=== PATIENT | male | born 1955 | race Caucasian/White ===

== ENCOUNTER 2022-11-03 07:32 | Outpatient (OUT) | payer MEDICARE, SELFPAY ==
[2022-11-03 08:06] LABS: Hemoglobin 13.8 g/dL (14.0-18.0)
--- NOTE | 2022-11-03 08:10 | CT_ITS ---
[address] [address] Patient Name: JESS CLARKE MRN: [id number] date: 1955 Sex: M Assigned Patient Location: CT Current Patient Location: CT Accession/Order Number: [id number] Exam Date: 11/03/2022 08:15 Report Date: 11/03/2022 10:19 At the request of: BARRY NOLAN Procedure: CT lung screening low-dose EXAMINATION: CT lung screening low-dose HISTORY: Centrilobular Emphysema J43.2 COMPARISON: CT chest 10/17/2020 TECHNIQUE: Axial, Coronal, and Sagittal images were created without the administration of IV contrast material. Dose reduction techniques were achieved by using automated exposure control and/or adjustment of mA and/or kV according to patient size and/or use of iterative reconstruction technique. FINDINGS: LUNGS: 8 x 7 x 6 mm triangular shaped nodule within medial base of right upper lobe. Stable 5 mm nodules versus pleural plaques abutting the right major fissure at the level of the hilum. Mild emphysematous changes bilaterally. Mild apical pleural scarring. PLEURA: No mass, effusion, or pneumothorax. VASCULATURE: No abnormality. TK: No mass or pathologic adenopathy. MEDIASTINUM: No mass or pathologic adenopathy. CARDIAC: No enlargement, pericardial thickening, or significant calcification. AORTA: No aneurysm or dissection. CHEST WALL: No mass or axillary adenopathy BONES: No bone lesion or fracture. LIMITED ABDOMEN: Small nonobstructing stone within left kidney. Limited images of the upper abdomen. OTHER: Negative. IMPRESSION: 1. Lung-RADS 2- Benign Appearance or Behavior. Nodules with a very low likelihood of becoming a clinically active cancer due to size or lack of growth. Follow-up CT Chest in 1 year. 2. Minimal increase in size of a triangular-shaped nodule versus scarring within base of right upper lobe over past 2 years. Follow-up CT chest without contrast in one year is recommended to document stability. Stable appearance of a few additional tiny nodules. 3. Mild emphysematous changes. 4. Nonobstructing left nephrolithiasis. Electronically authenticated by: DARREL ORTIZ Date: 11/03/2022 10:19
--- NOTE | 2022-11-03 09:56 | RT_ITS ---
[facility] Test Date: 2022-11-03 Pat Name: JESS CLARKE Department: Room: - Gender: Male Game Agent: Grabiel Neal RRT : 1955 Requested By: Terrell Price Order Number: [id number] Reading MD: Terrell Price Interpretive Statements Pulmonary function testing was completed according to ATS criteria. Findings were considered accurate and reproducible. Both pre- and post-bronchodilator values utilized for spirometry. No prior studies available for comparison. Spirometry (based on pre-bronchodilator values): -FEV1/FVC: Reduced @ 43% -FEV1: Moderately reduced @ 63% -FVC: Normal @ 108% -ELM54-94%: Reduced @ 24% -There is no significant bronchodilator response. Lung volumes by plethysmography (based on pre-bronchodilator values): -RV: High normal @ 116% -TLC: Normal @ 112% Diffusion capacity: -DLCO: Moderate reduction @ 59% when corrected for Hb 13.8g/dL Flow-volume loop: -Moderate obstructive pattern Impressions: -Moderate obstruction on spirometry without a bronchodilator response. Normal lung volumes. Moderate diffusion impairment. Overall study compatible with moderate emphysema/COPD. Clinical correlation required. Electronically Signed On 11-03-2022 17:43:57 EDT by Terrell Price
[2022-11-03] MEDS: ALBUTEROL SULFATE 2.5 MG/3 ML VIAL NEB IH (10:26)
== END 2022-11-03 07:33 | disposition home or self-care (01) ==
PROVIDERS: PCP Student in an Organized Health Care Education/Training Program; Visit Provider Internal Medicine
DX: E88.01 Alpha-1-antitrypsin deficiency (principal); J43.2 Centrilobular emphysema; Z87.891 Personal history of nicotine dependence; R94.2 Abnormal results of pulmonary function studies; R91.8 Other nonspecific abnormal finding of lung field; N20.0 Calculus of kidney
CPT/HCPCS: 36415; 71271; 85018; 94060; 94726; 94729

== ENCOUNTER 2023-11-14 07:56 | Outpatient (OUT) | payer MEDICARE, SELFPAY ==
--- NOTE | 2023-11-14 | CT_ITS ---
[address] [address] Patient Name: JESS CLARKE MRN: [id number] date: 1955 Sex: M Assigned Patient Location: CT Current Patient Location: Accession/Order Number: [id number] Exam Date: 11/14/2023 08:05 Report Date: 11/16/2023 14:20 At the request of: BARRY NOLAN Procedure: CT lung screening low-dose EXAMINATION: CT lung screening low-dose HISTORY: Lung screening COMPARISON: 02/16 TECHNIQUE: Axial, Coronal, and Sagittal images were created without the administration of IV contrast material.Dose reduction techniques were achieved by using automated exposure control and/or adjustment of mA and/or kV according to patient size and/or use of iterative reconstruction technique. FINDINGS: LUNGS: Mild centrilobular emphysema with an upper lobe predominance right greater than left. Subpleural interlobular septal thickening the posterior aspect of the right upper lobe, stable. Scattered subcentimeter pulmonary nodules the largest in the right lower lobe measuring 6.7 x 4.3 mm axial image 76 PLEURA: No mass, effusion, or pneumothorax. VASCULATURE: No abnormality. TK: No mass or pathologic adenopathy. MEDIASTINUM: No mass or pathologic adenopathy. CARDIAC: No enlargement or pericardial effusion. CORONARY ARTERIES: Coronary calcifications are moderate. AORTA: Ectasia of the ascending thoracic aorta measuring 3.9 cm in diameter. Moderate calcific atherosclerosis CHEST WALL: No mass or axillary adenopathy BONES: No bone lesion or fracture. LIMITED ABDOMEN: No suspicious findings. Limited images of the upper abdomen. OTHER: Negative. CT/CT lung screening low-dose IMPRESSION: New 6.7 mm right lower lobe nodule. This likely is below the limits of detectability for PET scan. Follow-up evaluation in 3 months is recommended to evaluate interval change LUNG SCREENING: Lung-RADS Category 4A- Suspicious. Findings for which additional diagnostic testing and/ or tissue sampling is recommended. 3 month LDCT; PET/CT may be used when there is a >= 8 mm solid component. Electronically authenticated by: MARLON NORTON Date: 11/16/2023 14:20
== END 2023-11-14 07:57 | disposition home or self-care (01) ==
LOC: CT 07:56
PROVIDERS: PCP Student in an Organized Health Care Education/Training Program; Visit Provider Internal Medicine
DX: R91.1 Solitary pulmonary nodule (principal); Z87.891 Personal history of nicotine dependence; Z12.2 Encounter for screening for malignant neoplasm of respiratory organs
CPT/HCPCS: 71271

== ENCOUNTER 2023-12-04 12:39 | Outpatient (OUT) | payer MEDICARE, SELFPAY ==
--- OUTSIDE RECORDS SUMMARY | 2023-12-04 12:46 | XMS_ITS | CCD ---
Author Organization [facility] Care Team Providers Care Cloth Covered Helmet Puller Name Role Phone JOHANNA JOHNSTON Unavailable Unavailable NHUNG CASTILLO Unavailable Unavailable Dee Dee Jones Primary Care Physician [phone] LISA HDEZ Attending Neida Jackman Primary Care Physician Lisa HDEZ Admitting Lisa Ontiveros Attending Lisa Ontiveros Referring Unavailab le REFERRAL, SELF Attending Unavailable Neida Macdonald Consulting Neida Orosco Consulting Unavailable Allergies Allergy Classification Reported Allergen(s) Allergy Type Date of Onset Reaction(s) Facility (1 source) No Known Medication Allergies; Translations: [No Known Medication Allergies] Propensity to adverse reactions (disorder) [facility] Repository Medications Current Medications Medication Drug Class(es) Dates Sig (Normalized) Sig (Original) albuterol 0.833 mg/ml / ipratropium bromide 0.167 mg/ml inhalation solution (2 sources) Anticholinergic, beta2-Adrenergic Agonist Start: 08-28-2020 albuterol-ipratrop ium Inh Manda 3 mL UD 3 mL, Inhalation, [id number], 180 mL, Refill(s) 3, [facility] #[facility], 170, cm, 08/27/20 6:03:00 EDT, Height/Length Dosing, 61.8, kg, 08/27/20 6:03:00 EDT, Weight Dosing Start Date: 08/28/20 Status: Ordered aspirin 81 mg delayed release oral tablet (2 sources) Platelet Aggregation Inhibitor, Nonsteroidal Anti-inflammatory Drug Start: 03-23-2020 take 1 tablet by mouth once daily aspirin 81 mg Oral EC Tab 81 mg = 1 tab(s), Oral, Daily, # 30 tab(s), Refills(s) 0 Start Date: 03/23/20 Status: Ordered atorvastatin 40 mg oral tablet (2 sources) HMG-CoA Reductase Inhibitor Start: 07-30-2020 take 1 tablet by mouth once daily in the evening atorvastatin 40 mg Tab 40 mg = 1 tab(s), Oral, qPM, # 90 tab(s), Refills(s) 3, Pharmacy: [facility]/pharmacy #[id number], 177.7, cm, 03/23/20 8:45:00 EST, Height/Length Dosing, 64.7, kg, 03/23/20 8:45:00 EST, Weight Dosing Start Date: 07/30/20 Status: Ordered Completed/Discontinued Medications Medication Drug Class(es) Dates Sig (Normalized) Sig (Original) predniSONE 10 mg oral tablet (2 sources) Start: 09-26-2020 predniSONE 10 mg Tab 10 mg = 1 tab(s), Oral, As Directed, Take 4 tabs for 3 days, 3 tabs for 3 days, 2 tabs for 3 days, 1 tab for 3 days., # 30 tab(s), Refills(s) 0, Pharmacy: [facility] #[id number], 169, cm, 09/24/20 9:41:00 EDT, Height/Length Dosing, 62, kg, 09/24/20 9:41:00 EDT, Weight Dosing Start Date: 09/26/20 Status: Ordered Problems Problem Classification Problem Date Documented Date Episodic/Chronic Chronic obstructive pulmonary disease and bronchiectasis (4 sources) Acute exacerbation of chronic obstructive airways disease; Translations: [Centriacinar emphysema] 09-06-2020 Chronic Disorders of lipid metabolism (4 sources) Hypercholesterolemia ; Translations: [Hyperlipidemia] 04-14-2020 Chronic E Codes: Fall (1 source) Fall; Translations: [Unspecified fall, initial encounter] Onset: 02-13-2022 Episodic Fracture of upper limb (1 source) Closed fracture radial styloid; Translations: [Displaced fracture of unspecified radial styloid process, initial encounter for closed fracture] Onset: 02-13-2022 Episodic Nonspecific chest pain (1 source) Chest pain, unspecified; Translations: [Chest pain, unspecified] Onset: 09-28-2017 Episodic Open wounds of extremities (1 source) Laceration of hip without foreign body; Translations: [Laceration without foreign body, unspecified hip, initial encounter] Onset: 02-13-2022 Episodic Other lower respiratory disease (2 sources) Hypoxemia 09-06-2020 Episodic Other lower respiratory disease (2 sources) Multiple nodules of lung 10-19-2020 Episodic Residual codes; unclassified (2 sources) Harmful pattern of use of nicotine 08-27-2020 Episodic Screening and history of mental health and substance abuse codes (2 sources) Tobacco use and exposure - finding 09-05-2017 Chronic Substance-related disorders (4 sources) Smoker; Translations: [Tobacco dependence caused by cigarettes] Resolved: 08-30-2016 09-05-2017 Chronic Comment on above: Added secondary to d ocumentation in Social History. Unclassified (2 sources) Chest pain, unspecified / R07.9(ICD-9) Onset: 09-28-2017 Results Test Name Value Interpretation Reference Range Facility US PVR Lower EXT Complete Bi laton 07-09-2023 US PVR Lower EXT Complete Bilat Exam Date/Time: 07/08/2023 08:12 EDT Reason for Exam: I87.2 R09.89 Report IMPRESSION: NO EVIDENCE OF SIGNIFICANT ARTERIAL STENOTIC DISEASE INVOLVING THE RIGHT AND LEFT LEGS. CLINICAL HISTORY: I87.2 R09.89. COMPARISON: None available. FINDINGS: On the right, the brachial systolic pressure is 122 , the high thigh pressure is 148 , the low thigh pressure is 149 , the calf pressure is 145 , the posterior tibial ankle pressure is 151 , the dorsalis pedis ankle pressure is 150 , and the digit pressure is 131 . The high thigh-brachial index is 1.06. The ankle-brachial index at the posterior tibial artery is 1.08 The dorsalis pedis-brachial index is 1.07. The toe-brachial index is 0.94, with normal 0.7 or greater. The plethysmography waveforms are normal. On the left, the brachial systolic pressure is 140 , the high thigh pressure is 155 , the low thigh pressure is 160 , the calf pressure is 143 , the posterior tibial ankle pressure is 168 , the dorsalis pedis ankle pressure is 154 , and the digit pressure is 117 . The high thigh-brachial index is 1.11. The ankle-brachial index at the posterior tibial artery is 1.20 The dorsalis pedis to brachial index is 1.10 The toe-brachial index is 0.84, with normal 0.7 or greater. The plethysmography waveforms are normal. Report Ordering Provider: Lisa HDEZ FINAL REPORT Dictated: 07/09/2023 12:22 pm Sunny Vasquez MD Signed (Electronic Signature): 07/09/2023 12:22 pm Signed by: Sunny Vasquez MD Transcribed by: JADYN Technologist: AD Normal [facility] Consent for Treatmenton 06-25 Consent for Treatment [id number] 0TIFF Normal [facility] Physician Orderon 07-01-2023 Physician Order [id number] 0TIFF Normal [facility] Kristi 02-14-2023 ALT No additional P-5'-P [Catalytic activity/Vol] 28 Int._Unit/L Normal 6-46 [facility] Comment on above: Performed By: #### 1 [id number], 8815976, 5921422, 0170124, 6370279, 4063735, 40533695 #### [facility] [address] [place] [address] Ginna 02-14-2023 AST [Catalytic activity/Vol] 27 Int._Unit/L Normal 5-43 [facility] Comment on above: Performed By: #### 1 0740260, 4604255, 5883630, 3337746, 3747179, 3696361, 10862220 #### [facility] [address] [place] [address] BMPon 02-14-2023 Creatinine [Mass/Vol] 1.0 mg/dL Normal 0.5-1.3 [facility] Comment on above: Performed By: #### 1 9405254, 5936163, 8185675, 6295375, 5248872, 0402798, 92228258 #### [facility] [address] [place] [address] Urea nitrogen [Mass/Vol] 17 mg/dL Normal - [facility] Comment on above: Performed By: #### 1 8492551, 1352610, 0924124, 9891187, 4928538, 6822388, 91372190 #### [facility] [address] [place] [address] Urea nitrogen/Creatini ne [Mass ratio] 17 No Units Normal 10-20 [facility] Comment on above: Performed By: #### 1 8365655, 2043526, 0877217, 5951175, 3821082, 3358577, 92133225 #### [facility] [address] [place] [address] Anion gap [Moles/Vol] 13 mmol/L Normal 6-16 [facility] Comment on above: Performed By: #### 1 0123679, 7644840, 3935011, 7086907, 0808131, 9458240, 20598817 #### [facility] [address] [place] [address] Calcium [Mass/Vol] 9.4 mg/dL Normal 8.9-11.1 [facility] Comment on above: Performed By: #### 1 5630125, 3510975, 4965730, 6634939, 9058381, 6448189, 68364465 #### [facility] [address] [place] [address] Chloride [Moles/Vol] 104 mmol/L Normal 101-111 [facility] Comment on above: Performed By: #### 1 1872413, 9931830, 6239146, 6925444, 5008309, 1861840, 71550368 #### [facility] [address] [place] [address] CO2 [Moles/Vol] 24 mmol/L Normal 21-31 [facility] Comment on above: Performed By: #### 1 1214477, 1355821, 2824685, 4077403, 5753074, 2181479, 23896972 #### [facility] [address] [place] [address] Glucose [Mass/Vol] 107 mg/dL Normal 55-199 [facility] Comment on above: Result Comment: If t his glucose result represents a fasting glucose, interpretation should refer to the following reference range: 55-99 mg/dL Performed By: #### 1 8181007, 8802356, 3803021, 1765221, 2088063, 2670622, 13190073 #### [facility] [address] [place] [address] Potassium [Moles/Vol] 4.1 mmol/L Normal 3.5-5.3 [facility] Comment on above: Performed By: #### 1 2788750, 3666178, 8596162, 2344935, 3599974, 0452883, 67211932 #### [facility] [address] [place] [address] Sodium [Moles/Vol] 137 mmol/L Normal 135-145 [facility] Comment on above: Performed By: #### 1 4571367, 5128766, 0197633, 4076202, 1367437, 4497441, 83764212 #### [facility] [address] [place] [address] CBC w/Indiceson 02-14-2023 Erythrocyte distribution width (RBC) [Ratio] 12.5 % Normal 10.9-14.2 [facility] Comment on above: Performed By: #### 1 2012838, 2655252, 4853344, 5480196, 5632525, 8537985, 09625962 #### [facility] [address] [place] [address] Hematocrit (Bld) [Volume fraction] 46.1 % Normal 37.7-49.0 [facility] Comment on above: Performed By: #### 1 7925394, 0918584, 1087225, 9957484, 3884771, 7795696, 22575582 #### [facility] [address] [place] [address] Hemoglobin (Bld) [Mass/Vol] 15.5 g/dL Normal 13.5-17.5 [facility] Comment on above: Performed By: #### 1 1070100, 4127103, 5137471, 1860719, 0938343, 7313060, 99300479 #### [facility] [address] [place] [address] MCH (RBC) [Entitic mass] 31.1 pg Normal 27.0-34.0 [facility] Comment on above: Performed By: #### 1 5838848, 9226699, 9518776, 1974470, 1004109, 7767870, 73244157 #### [facility] [address] [place] [address] MCHC (RBC) [Mass/Vol] 33.5 g/dL Normal 31.4-36.0 [facility] Comment on above: Performed By: #### 1 0117331, 2768970, 9920023, 4145874, 3663593, 6554131, 28694159 #### [facility] [address] [place], [place] [address] MCV (RBC) [Entitic vol] 92.7 fL Normal 80.0-100.0 [facility] Comment on above: Performed By: #### 1 5889797, 3808772, 3207273, 5043337, 4330701, 0668610, 33772465 #### [facility] [address] [place] [address] Platelet mean volume (Bld) [Entitic vol] 9.3 fL Normal 6.4-10.8 [facility] Comment on above: Performed By: #### 1 2455250, 2053290, 2175889, 5219594, 6450177, 9683903, 31261609 #### [facility] [address] [place] [address] Platelets (Bld) [#/Vol] 239.0 E9/L Normal 150.0-500.0 [facility] Comment on above: Performed By: #### 1 1544784, 5131942, 3048390, 6640168, 4285484, 0853702, 02456991 #### [facility] [address] [place] [address] RBC (Bld) [#/Vol] 5.0 E12/L Normal 4.3-5.9 [facility] Comment on above: Performed By: #### 1 4769769, 2536824, 0204660, 2507372, 9614257, 1457250, 83744568 #### [facility] [address] [place] [address] WBC corrected for nucl RBC Auto (Bld) [#/Vol] 7.0 E9/L Normal 4.0-11.0 [facility] Comment on above: Performed By: #### 1 9457112, 6998400, 7718748, 7589488, 4239047, 3835301, 23146556 #### [facility] [address] [place] [address] Consenton 02-14-2023 Consent [id number] Normal [facility] Lipid Panelon 02-14-2023 Cholesterol [Mass/Vol] 182 mg/dL Normal 120-200 [facility] Comment on above: Performed By: #### 1 8699255, 2396772, 7658152, 1727568, 9147611, 3708974, 39364463 #### [facility] [address] [place] [address] Cholesterol in HDL [Mass/Vol] 48 mg/dL Invalid Interpretation Code [facility] Comment on above: Result Comment: HDL > or equal to 60 mg/dL: Low cardiovascular risk HDL < 40 mg/dL : High cardiovascular risk Performed By: #### 1 9140888, 5626807, 2576025, 6074504, 3773366, 7252935, 99803160 #### [facility] [address] [place] [address] Cholesterol in LDL [Mass/Vol] 109 mg/dL Normal <=129 [facility] Comment on above: Performed By: #### 1 0037138, 6278629, 4640978, 6296678, 4017580, 8421893, 02584073 #### [facility] [address] [place] [address] Cholesterol in VLDL [Mass/Vol] 28 mg/dL Normal 7-40 [facility] Comment on above: Performed By: #### 1 9122990, 0060281, 1759147, 6679399, 3437142, 0217574, 25794925 #### [facility] [address] [place] [address] Triglyceride [Mass/Vol] 138 mg/dL Normal <=149 [facility] Comment on above: Performed By: #### 1 5535871, 9751431, 8804996, 5287394, 0064887, 0898021, 04237239 #### [facility] [address] [place] [address] PSA Totalon 02-14-2023 Prostate specific Ag [Mass/Vol] 1.2 ng/mL Normal 0.1-3.5 [facility] Comment on above: Result Comment: The concentration of PSA determined by different manufacturers can vary due to differences in assay methods and reagent specificity. Values obtained from different assay methods cannot be used interchangeably. The methodology used for this result was chemiluminescence using [employer] Access [employer] PSA reagent. Performed By: #### 1 6907538, 2817303, 9064891, 0024476, 7408291, 9636856, 74747648 #### [facility] [address] [place] [address] eGFRon 02-14-2023 GFR/1.73 sq M.predicted among non-blacks MDRD (S/P/Bld) [Vol rate/Area] 84 mL/min/1.73 m2 Normal >=59 [facility] Comment on above: Order Comment: Order added by Discern Expert. Result Comment: Intranet Support jose kidney disease could be indicated at eGFR's of less than 60 mL/min/1.73m2. Kidney failure is indicated at less than 15 mL/min/1.73m2. Performed By: #### 1 1544924, 6489889, 4481756, 9241467, 4034513, 3772732, 92650880 #### [facility] [address] [place] [address] In office Testingon 07-11-19 In office Testing [id number]:127 Normal [facility] Vital Signs Date Time Vital Sign Value Performing Clinician Seun burks 02-13-2022 15:30-0400 Diastolic blood pressure 73 mm[Hg] Jamel Randell [facility] 02-13-2022 15:30-0400 Heart rate 69 /min Jamel Randell [facility] 02-13-2022 15:30-0400 Mean blood pressure 92 mm[Hg] Jamel Randell [facility] 02-13-2022 15:30-0400 Respiratory rate 12 /min Jamel Randell [facility] 02-13-2022 15:30-0400 SaO2% (BldA) [Mass fraction] 96 % Jamel Randell [facility] 02-13-2022 15:30-0400 Systolic blood pressure 130 mm[Hg] Jamel Randell [facility] 02-13-2022 14:00-0400 Body temperature 98.06 [degF] Jamel Randell [facility] 02-13-2022 14:00-0400 Diastolic blood pressure 75 mm[Hg] Jamel Randell [facility] 02-13-2022 14:00-0400 Heart rate 71 /min Jamel Randell [facility] 02-13-2022 14:00-0400 Mean blood pressure 89 mm[Hg] Jamel Randell [facility] 02-13-2022 14:00-0400 Respiratory rate 14 /min Jamel Randell [facility] 02-13-2022 14:00-0400 SaO2% (BldA) [Mass fraction] 94 % Jamel Randell [facility] 02-13-2022 14:00-0400 Systolic blood pressure 116 mm[Hg] Jamel Randell [facility] 02-13-2022 13:01-0400 Diastolic blood pressure 73 mm[Hg] Jamel Randell [facility] 02-13-2022 13:01-0400 Heart rate 70 /min Jamel Randell [facility] 02-13-2022 13:01-0400 Respiratory rate 18 /min Jamel Randell [facility] 02-13-2022 13:01-0400 SaO2% (BldA) [Mass fraction] 95 % Jamel Randell [facility] 02-13-2022 13:01-0400 Systolic blood pressure 106 mm[Hg] Jamel Randell [facility] 02-13-2022 12:49-0400 Body temperature 98.24 [degF] Jamel Randell [facility] 02-13-2022 12:49-0400 Heart rate 102 /min Jamel Randell [facility] 02-13-2022 12:49-0400 Respiratory rate 18 /min Jamel Randell [facility] Encounters Encounter Date Encounter Type Care Provider Facility Start: 07-08-2023 End: 07-09-2023 ambulatory Lisa HDEZ Facility[facility] Start: 07-08-2023 End: 07-08-2023 Patient encounter procedure Lisa WOLFR [facility] Start: 07-01-2023 End: 07-01-2023 ambulatory LISA CUEVASKAREN Not Available Start: 02-14-2023 End: 02-15-2023 ambulatory SELF REFERRAL Facility:[facility] Start: 02-13-2022 End: 02-13-2022 Emergency department patient visit Jamel Mejias [facility] Start: 09-28-2017 Ambulatory JOHANNA JOHNSTON [facility] ity:[id number] Start: 09-28-2017 Ambulatory Facility:9 [id number] Immunizations Immunization Date Immunization Notes Care Provider Fa joshua 02-13-2022 tetanus toxoid, redu tasha diphtheria toxoid, and acellular pertussis vaccine, adsorbed Jamel Mejias [facility] Comment on above: Early/Late Reason: E lorna/Late Reason: Accommodate D/C 07-26-2020 SARS-CoV-2 (COVID-19 ) mRNA-1273 vaccine Jamel Mejias [facility] Comment on above: Result Comment: William Coyne 02-24-2020 influenza virus vaccine, unspecified formulation Jamel Mejias [facility] 04-25-2019 influenza, injectabl e, quadrivalent, contains preservative Jamel Mejias [facility] Payers Date Payer Category Payer Medicare [id number] 2023 Unknown [id number] 1955 Unknown [id number] 1955 Unknown [id number] [id number] [id number] 1955 Unknown [id number] Private Health Insurance [id number] Social History Date Type Detail Facility Start: 02-13-2022 Tobacco smoking status Ex-smoker (fi nding) [facility] Comment on above: Pt denies smoking fo r a month Sex Assigned At Male [facility] Functional Status Date Assessment Result Facility 02-13-2022 Functional Status N/A [facility] Discharge instructions 02-13-2022 Note Date & Type Note Facility 02-13-2022 Hospital Discharg e instructions Patient Education 02/13/2022 15:15:04 Cast or Splint Care, Adult Cast or Splint Care, Adult Casts and splints are supports that are worn to protect broken bones and other injuries. A cast or splint may hold a bone still and in the correct position while it heals. Casts and splints may also help ease pain, swelling, and muscle spasms. A cast is a hardened support that is usually made of fiberglass or plaster. It is custom-fit to the body and it offers more protection than a splint. It cannot be taken off and put back on. A splint is a type of soft support that is usually made from cloth and elastic. It can be adjusted or taken off as needed. You may need a cast or a splint if you: Have a broken bone. Have a soft-tissue injury. Need to keep an injured body part from moving (keep it immobile) after surgery. How is this treated? If you have a cast: Do not stick anything inside the cast to scratch your skin. Sticking something in the cast increases your risk of infection. Check the skin around the cast every day. Tell your health care provider about any concerns. You may put lotion on dry skin around the edges of the cast. Do not put lotion on the skin underneath the cast. Keep the cast clean. If the cast is not waterproof: ?Do not let it get wet. ?Cover it with a watertight covering when you take a bath or a shower. If you have a splint: Wear it as told by your health care provider. Remove it only as told by your health care provider. Loosen the splint if your fingers or toes tingle, become numb, or turn cold and blue. Keep the splint clean. If the splint is not waterproof: ?Do not let it get wet. ?Cover it with a watertight covering when you take a bath or a shower. Bathing Do not take baths or swim until your health care provider approves. Ask your health care provider if you can take showers. You may only be allowed to take sponge baths for bathing. If your cast or splint is not waterproof, cover it with a watertight covering when you take a bath or shower. Managing pain, stiffness, and swelling Move your fingers or toes often to avoid stiffness and to lessen swelling. Raise (elevate) the injured area above the level of your heart while sitting or lying down. Safety Do not use the injured limb to support your body weight until your health care provider says that it is okay. Use crutches or other assistive devices as told by your health care provider. General instructions Do not put pressure on any part of the cast or splint until it is fully hardened. This may take several hours. Return to your normal activities as told by your health care provider. Ask your health care provider what activities are safe for you. Take wahb-hve-fhrhkwb and prescription medicines only as told by your health care provider. Keep all follow-up visits as told by your health care provider. This is important. Contact a health care provider if: Your cast or splint gets damaged. The skin around the cast gets red or raw. The skin under the cast is extremely itchy or painful. Your cast or splint feels very uncomfortable. Your cast or splint is too tight or too loose. Your cast becomes wet or it develops a soft spot or area. You get an object stuck under your cast. Get help right away if: Your pain is getting worse. The injured area tingles, becomes numb, or turns cold and blue. The part of your body above or below the cast is swollen and discolored. You cannot feel or move your fingers or toes. There is fluid leaking through the cast. You have severe pain or pressure under the cast. You have trouble breathing. You have shortness of breath. You have chest pain. This information is not intended to replace advice given to you by your health care provider. Make sure you discuss any questions you have with your health care provider. Document Released: 04/10/2001 Document Revised: 02/08/2018 Document Reviewed: 10/04/2016 [employer] Patient Education 2020 [employer]. Follow Up Care 02/13/2022 12:48:03 With:Collin Brock Address: [address] [place], [place] [id number] Business (1) When:02/16/2022 15:14:50 With:Dee Dee Jones Address: [address] [place] [address] [place] [id number] Business (1) When:Within 3 Day(s) [facility] [place] Evaluation + Plan note 10-19-2021 Radiology Note Date & Type Note Facility 10-19-2021 Evaluation + Plan note Future Scheduled TestsCT Chest w/ Contrast 10/19/21 [facility] Hospital course Narrative Note Date & Type Note Facility Hospital course Narrative No data available for this section [facility] Hospital Discharge instructions Note Date & Type Note [facility] Discharge instructions No data available for this section [facility] Progress note Note Date & Type Note Facility Progress note No data available for this section [facility] Summary Purpose Family History No Family History Records FoundNo Family History Records FoundNo Family History Records Found No data available for this section No Family History Records Found Advance Directives No Advanced Directives Records FoundNo Advanced Directives Records FoundNo Advanced Directives Records FoundNo Advanced Directives Records Found Additional Source Comments (unrecognized sect ion and content) No Status Records FoundNo Status Records FoundNo Status Records FoundNo Status Records Found INFORMATION SOURCE (unrecogn ized section and content) DATE CREATED AUTHOR 10/13/2017 [facility] DATE CREATED AUTHOR AUTHOR'S ORGANIZ ATION 10/13/2017 [facility] [place] DATE CREATED AUTHOR AUTHOR'S ORGANIZ ATION 07/02/2023 [facility] DATE CREATED AUTHOR AUTHOR'S ORGANIZ ATION 07/10/2023 [facility] Patient Care team informatio n (unrecognized section and content) Personnel Name: Dee Dee Jones MD Address: Address: [address] [place] [address] Personnel Name: Neida Macdonald MD Address: Address: [address] [place] [address] FOR RECORDS PERTAINING TO PATIENTS WHO ARE OR HAVE BEEN ENROLLED IN A CHEMICAL DEPENDENCY/SUBSTANCEABUSE PROGRAM, SOME INFORMATION MAY BE OMITTED. This clinical summary was aggregated from multiple sources. Caution should be exercised in using it in the provision of clinical care. This summary normalizes information from multiple sources, and as a consequence, information in this document may materially change the coding, format and clinical context of patient data. In addition, data may be omitted in some cases. CLINICAL DECISIONS SHOULD BE BASED ON THE PRIMARY CLINICAL RECORDS. [facility] [employer] [facility]. provides no warranty or guarantee of the accuracy or completeness of information in this document.
[2023-12-04] MEDS: ALBUTEROL SULFATE 2.5 MG/3 ML VIAL NEB IH (13:18)
== END 2023-12-04 12:40 | disposition home or self-care (01) ==
PROVIDERS: PCP Student in an Organized Health Care Education/Training Program; Visit Provider Internal Medicine
DX: J43.2 Centrilobular emphysema (principal)
CPT/HCPCS: 94060; 94726; 94729

== ENCOUNTER 2024-03-12 07:47 | Outpatient (OUT) | payer MEDICARE, SELFPAY ==
--- NOTE | 2024-03-12 | CT_ITS ---
[address] [address] Patient Name: JESS CLARKE MRN: [id number] date: 1955 Sex: M Assigned Patient Location: CT Current Patient Location: Accession/Order Number: [id number] Exam Date: 03/12/2024 07:55 Report Date: 03/13/2024 09:12 At the request of: BARRY NOLAN Procedure: CT chest wo con EXAMINATION: CT chest wo con HISTORY: R818 ; follow-up lung nodules COMPARISON: CT lung screening 11/14/2023, 11/03/2022, 10/17/2020 TECHNIQUE: Axial, Coronal, and Sagittal images were created without the administration of IV contrast material. Dose reduction techniques were achieved by using automated exposure control and/or adjustment of mA and/or kV according to patient size and/or use of iterative reconstruction technique. FINDINGS: LUNGS: 5 x 4 mm slightly spiculated nodule within anterior lateral base of left lower lobe; unchanged. Stable appearance of a few scattered small nodules and focal pleural thickening. Mild emphysematous changes. PLEURA: No mass, effusion, or pneumothorax. VASCULATURE: No abnormality. TK: No mass or pathologic adenopathy. MEDIASTINUM: No mass or pathologic adenopathy. CARDIAC: No enlargement, pericardial thickening, or pericardial effusion. Coronary Artery calcifications: AORTA: No aneurysm or dissection. CHEST WALL: No mass or axillary adenopathy BONES: No bone lesion or fracture. LIMITED ABDOMEN: No suspicious findings. Limited images of the upper abdomen. OTHER: Negative. CT/CT chest wo con IMPRESSION: 1. Lung-RADS 2- Benign Appearance or Behavior. Nodules with a very low likelihood of becoming a clinically active cancer due to size or lack of growth. Follow-up CT Chest in 1 year. 2. Small, 5 mm spiculated nodule within anterior lateral left lower lobe. This is below detectability for PET imaging and is stable on CT studies back through 10/17/2020 which favors benign etiology. Annual screening recommended. Electronically authenticated by: DARREL ORTIZ Date: 03/13/2024 09:12
--- OUTSIDE RECORDS SUMMARY | 2024-03-12 07:51 | XMS_ITS | CCD ---
Author Organization [facility] Care Team Providers Care Marking Room Supervisor Name Role Phone JOHANNA JOHNSTON Unavailable Unavailable NHUNG CASTILLO Unavailable Unavailable Dee Dee Jones Primary Care Physician [phone] LISA HDEZ Attending Unavailab Neida Shukla Primary Care Physician [phone] Hayde MEREDITH Attending Unavailable Yunior JIMENEZ Attending Unavailable Lisa HDEZ Referring Unavailab Lisa Ramirez Attending Lisa Ontiveros Admitting Unavailab Ross Hoffman Attending Unavailable Allergies Allergy Classification Reported Allergen(s) Allergy Type Date of Onset Reaction(s) Facility (1 source) No Known Medication Allergies; Translations: [No Known Medication Allergies] Propensity to adverse reactions (disorder) [facility] Repository Medications Current Medications Medication Drug Class(es) Dates Sig (Normalized) Sig (Original) albuterol 0.833 mg/ml / ipratropium bromide 0.167 mg/ml inhalation solution (2 sources) Anticholinergic, beta2-Adrenergic Agonist Start: 08-28-2020 albuterol-ipratrop ium Inh Manda 3 mL UD 3 mL, Inhalation, [id number], 180 mL, Refill(s) 3, [facility], 170, cm, 08/27/20 6:03:00 EDT, Height/Length [...] qPM, # 90 tab(s), Refills(s) 3, Pharmacy: [facility]/pharmacy #[id number], 177.7, cm, 03/23/20 8:45:00 EST, Height/Length [...] days., # 30 tab(s), Refills(s) 0, Pharmacy: [facility], 169, cm, 09/24/20 9:41:00 EDT, Height/Length [...] Results Test Name Value Interpretation Reference Range Facil ity US PVR Lower EXT Complete Bi laton [...] Sunny Vasquez MD Transcribed by: JADYN Technologist: ZACK [facility] Consent for Treatmenton 06-25 Consent for Treatment [id number] 0TIFF [facility] Physician Orderon 07-01-2023 Physician Order [id number] 0TIFF [facility] Vital Signs Date Time Vital Sign Value Performing Clinician Faci lity 02-13-2022 15:30-0400 Diastolic blood pressure 73 mm[Hg] Jamel Mejias [facility] 02-13-2022 15:30-0400 Heart rate 69 /min Jamel Mejias [facility] 02-13-2022 15:30-0400 Mean blood pressure 92 mm[Hg] Jamel Mejias [facility] 02-13-2022 15:30-0400 Respiratory rate 12 /min Jamel Mejias [facility] 02-13-2022 15:30-0400 SaO2% (BldA) [Mass fraction] 96 % Jamel Mejias [facility] 02-13-2022 15:30-0400 Systolic blood pressure 130 mm[Hg] Jamel Mejias [facility] 02-13-2022 14:00-0400 Body temperature 98.06 [degF] Jamel Mejias [facility] 02-13-2022 14:00-0400 Diastolic blood pressure 75 mm[Hg] Jamel Randell [facility] 02-13-2022 14:00-0400 Heart rate 71 /min Jamel Randell [facility] 02-13-2022 14:00-0400 Mean blood pressure 89 mm[Hg] Jamel Randell [facility] 02-13-2022 14:00-0400 Respiratory rate 14 /min Jamel Randell [facility] 02-13-2022 14:00-0400 SaO2% (BldA) [Mass fraction] 94 % Jamel Randell [facility] 02-13-2022 14:00-0400 Systolic blood pressure 116 mm[Hg] Jamel Randell [facility] 02-13-2022 13:01-0400 Diastolic blood pressure 73 mm[Hg] Jamel Randell [facility] 02-13-2022 13:01-0400 Heart rate 70 /min Jamel Randell [facility] 02-13-2022 13:01-0400 Respiratory rate 18 /min Jamel Randell [facility] 02-13-2022 13:01-0400 SaO2% (BldA) [Mass fraction] 95 % Jamel Randell [facility] 02-13-2022 13:01-0400 Systolic blood pressure 106 mm[Hg] Jamel Randell [facility] 02-13-2022 12:49-0400 Body temperature 98.24 [degF] Jamel Randell [facility] 02-13-2022 12:49-0400 Heart rate 102 /min Jamel Randell [facility] 02-13-2022 12:49-0400 Respiratory rate 18 /min Jamel Randell [facility] Encounters Encounter Date Encounter Type Care Provider Facility Start: 02-25-2024 End: 02-25-2024 ambulatory Ross Osborne [facility] Start: 02-11-2024 End: 02-11-2024 ambulatory Hayde MEREDITH [facility] Start: 01-18-2024 End: 01-18-2024 ambulatory Yunior JIMENEZ [facility] Start: 07-08-2023 End: 07-08-2023 ambulatory Lisa A DONNAMILLER Facility[facility] Start: 07-08-2023 End: 07-08-2023 Patient encounter procedure Lisa A CIPRIANONAMILLER [facility] Start: 07-01-2023 End: 07-01-2023 ambulatory LISA COTANAMILLER Not Available Start: 02-13-2022 End: 02-13-2022 Emergency department patient visit Jamel Mejias [facility] Start: 09-28-[address] [facility] ity:[id number] Start: 09-28-2017 Ambulatory Facility:[id number] Immunizations Immunization Date Immunization Notes Care Provider Fa elzbieta 02-13-2022 tetanus toxoid, redu tasha diphtheria toxoid, and acellular pertussis vaccine, adsorbed Jamel Mejias [facility] Comment on above: Early/Late Reason: E lorna/Late Reason: Accommodate D/C 07-26-2020 SARS-CoV-2 (COVID-19 ) mRNA-1273 vaccine Jamel Mejias [facility] Comment on above: Result Comment: William Coyne 02-24-2020 influenza virus vaccine, unspecified formulation Jamel Mejias [facility] 04-25-2019 influenza, injectabl e, quadrivalent, contains preservative Jamel Mejias [facility] Payers Date Payer Category Payer Medicare [id number] 1955 Unknown [id number] 1955 Unknown [id number] 1955 Unknown [id number] Private Health Insurance [id number] Social History Date Type Detail Facility Start: 02-13-2022 Tobacco smoking status Ex-smoker (fi nding) [facility] Comment on above: Pt denies smoking fo r a month Sex Assigned At Male [facility] Functional Status Date Assessment Result Facility 02-13-2022 Functional Status N/A [facility] Discharge instructions 02-13-2022 Note Date & [...] what activities are safe for you. Take eabs-xsa-jyabzaa and prescription medicines only as told by [...] 04/10/2001 Document Revised: 02/08/2018 Document Reviewed: 10/04/2016 [employer] Patient Education 2020 [employer]. Follow Up Care 02/13/2022 12:48:03 With:Collin Brock Address: [address] [place] [phone] Business (1) When:02/16/2022 15:14:50 With:Dee Dee Jones Address: [address] [place] [phone] Business (1) When:Within 3 Day(s) [facility] Evaluation + Plan note 10-19-2021 Radiology Note Date & Type Note Facility 10-19-2021 Evaluation + Plan note Future Scheduled TestsCT Chest w/ Contrast 10/19/21 [facility] Hospital course Narrative Note Date & Type Note Facility Hospital course Narrative No data available for this section [facility] Hospital Discharge instructions Note Date & Type Note Facility Hospital Discharge instructions No data available for this section [facility] Progress note Note Date & Type Note Facility Progress note No data available for this section [facility] Summary Purpose Family History No Family History [...] section and content) DATE CREATED AUTHOR 10/13/2017 [facility] DATE CREATED AUTHOR AUTHOR'S ORGANIZ ATION 10/13/2017 [facility] DATE CREATED AUTHOR AUTHOR'S ORGANIZ ATION 07/02/2023 [facility] EPIC DATE CREATED AUTHOR AUTHOR'S ORGANIZ ATION 02/27/[address] [facility] Patient Care team informatio n (unrecognized section and content) Personnel Name: Dee Dee Jones MD Address: Address: [address] Personnel Name: Neida Macdonald MD Address: Address: [address] FOR RECORDS PERTAINING TO PATIENTS WHO [...] BE BASED ON THE PRIMARY CLINICAL RECORDS. [facility] [employer] provides no warranty or guarantee of the accuracy or completeness of information in this document.
== END 2024-03-12 07:48 | disposition home or self-care (01) ==
LOC: CT 07:49
PROVIDERS: PCP Student in an Organized Health Care Education/Training Program; Visit Provider Internal Medicine
DX: R91.8 Other nonspecific abnormal finding of lung field (principal)
CPT/HCPCS: 71250

== ENCOUNTER 2024-07-25 07:31 | Outpatient (RCR) | payer MEDICARE, SELFPAY ==
[2024-07-11 07:59] VITALS: BP 153/74; PULSE 86; TEMP 36.6; O2SAT 92
--- NOTE | 2024-07-11 08:18 | PC.NURSE ---
patient and educated on Alpha 1 and prolastin therapy. handout given for both.
[2024-07-18 07:35] VITALS: BP 146/80; PULSE 80; TEMP 36.8; O2SAT 92
--- NOTE | 2024-07-18 08:00 | PC.NURSE ---
0756: IV Prolastin initiated at this time.Denies needs.
[2024-07-25 07:37] VITALS: BP 122/79; PULSE 67; TEMP 36.4; O2SAT 92
== END 2024-07-25 23:59 | disposition home or self-care (01) ==
LOC: INF 07:31
PROVIDERS: PCP Student in an Organized Health Care Education/Training Program; Visit Provider Internal Medicine
DX: E88.01 Alpha-1-antitrypsin deficiency (principal); J43.9 Emphysema, unspecified
CPT/HCPCS: 96365; J0256

== ENCOUNTER 2024-08-22 07:35 | Outpatient (RCR) | payer MEDICARE, SELFPAY ==
[2024-08-01 07:46] VITALS: BP 136/78; PULSE 74; TEMP 36.6; O2SAT 90
[2024-08-01] MEDS: ALPHA IV (08:17)
[2024-08-01] MEDS: PROTEINASE INHIBITOR IV (08:17)
[2024-08-08 07:48] VITALS: BP 137/76; PULSE 67; TEMP 36.4; O2SAT 90
[2024-08-08] MEDS: PROTEINASE INHIBITOR IV (07:56)
[2024-08-08] MEDS: ALPHA IV (07:56)
[2024-08-15 07:56] VITALS: BP 147/69; PULSE 74; TEMP 36.2; O2SAT 90
[2024-08-15] MEDS: PROTEINASE INHIBITOR IV (08:03)
[2024-08-15] MEDS: ALPHA IV (08:03)
[2024-08-22 07:32] VITALS: BP 138/77; PULSE 85; TEMP 36.1; O2SAT 91
[2024-08-22] MEDS: ALPHA IV (07:41)
[2024-08-22] MEDS: PROTEINASE INHIBITOR IV (07:41)
== END 2024-08-22 12:49 | disposition home or self-care (01) ==
LOC: INF 07:35
PROVIDERS: PCP Student in an Organized Health Care Education/Training Program; Visit Provider Internal Medicine
DX: E88.01 Alpha-1-antitrypsin deficiency (principal); J43.2 Centrilobular emphysema
CPT/HCPCS: 96365; J0256

== ENCOUNTER 2024-09-20 07:31 | Outpatient (RCR) | payer MEDICARE, SELFPAY ==
[2024-08-29 07:40] VITALS: BP 138/83; PULSE 78; TEMP 36.9; O2SAT 90
[2024-08-29] MEDS: ALPHA IV (08:00)
[2024-08-29] MEDS: PROTEINASE INHIBITOR IV (08:00)
[2024-09-05 07:45] VITALS: BP 123/69; PULSE 82; TEMP 35.9; O2SAT 90
[2024-09-05] MEDS: ALPHA IV (08:03)
[2024-09-05] MEDS: PROTEINASE INHIBITOR IV (08:03)
[2024-09-12 07:32] VITALS: BP 130/70; PULSE 78; TEMP 36.2; O2SAT 92
[2024-09-12] MEDS: ALPHA IV (07:49)
[2024-09-12] MEDS: PROTEINASE INHIBITOR IV (07:49)
[2024-09-20 07:35] VITALS: BP 138/71; PULSE 66; TEMP 36.7; O2SAT 91
[2024-09-20] MEDS: ALPHA IV (07:50)
[2024-09-20] MEDS: PROTEINASE INHIBITOR IV (07:50)
== END 2024-09-20 14:21 | disposition home or self-care (01) ==
LOC: INF 07:31
PROVIDERS: PCP Student in an Organized Health Care Education/Training Program; Visit Provider Internal Medicine
DX: E88.01 Alpha-1-antitrypsin deficiency (principal); J43.9 Emphysema, unspecified
CPT/HCPCS: 96365; J0256

== ENCOUNTER 2024-10-24 07:34 | Outpatient (RCR) | payer MEDICARE, SELFPAY ==
[2024-09-26 07:42] VITALS: BP 146/87; PULSE 70; TEMP 36.6; O2SAT 94
[2024-09-26] MEDS: PROTEINASE INHIBITOR IV (07:57)
[2024-09-26] MEDS: ALPHA IV (07:57)
[2024-10-03 07:40] VITALS: BP 142/81; PULSE 75; TEMP 36.8; O2SAT 91
[2024-10-03] MEDS: PROTEINASE INHIBITOR IV (08:18)
[2024-10-03] MEDS: ALPHA IV (08:18)
[2024-10-10 07:43] VITALS: BP 124/77; PULSE 72; TEMP 36.2; O2SAT 92
[2024-10-10] MEDS: PROTEINASE INHIBITOR IV (08:01)
[2024-10-10] MEDS: ALPHA IV (08:01)
[2024-10-17 07:25] VITALS: BP 131/77; PULSE 93; TEMP 36.2; O2SAT 98
[2024-10-17] MEDS: PROTEINASE INHIBITOR IV (07:48)
[2024-10-17] MEDS: ALPHA IV (07:48)
--- NOTE | 2024-10-17 07:54 | PC.NURSE ---
0748: IV Prolastin initiated at this time.
[2024-10-24 07:43] VITALS: BP 119/71; PULSE 81; TEMP 36.6; O2SAT 95
[2024-10-24] MEDS: PROTEINASE INHIBITOR IV (07:47)
[2024-10-24] MEDS: ALPHA IV (07:47)
== END 2024-10-24 23:59 | disposition home or self-care (01) ==
LOC: INF 07:34
PROVIDERS: PCP Student in an Organized Health Care Education/Training Program; Visit Provider Internal Medicine
DX: E88.01 Alpha-1-antitrypsin deficiency (principal); J43.9 Emphysema, unspecified
CPT/HCPCS: 96365; J0256

== ENCOUNTER 2024-11-22 07:07 | Outpatient (RCR) | payer MEDICARE, SELFPAY ==
[2024-10-31 07:37] VITALS: BP 125/69; PULSE 81; TEMP 36.6; O2SAT 93
[2024-10-31] MEDS: ALPHA IV (07:54)
[2024-10-31] MEDS: PROTEINASE INHIBITOR IV (07:54)
[2024-11-07 07:30] VITALS: BP 117/74; PULSE 80; TEMP 36.6; O2SAT 92
[2024-11-07] MEDS: PROTEINASE INHIBITOR IV (07:57)
[2024-11-07] MEDS: ALPHA IV (07:57)
[2024-11-14 07:44] VITALS: BP 126/76; PULSE 78; TEMP 36.4; O2SAT 92
[2024-11-14] MEDS: ALPHA IV (08:03)
[2024-11-14] MEDS: PROTEINASE INHIBITOR IV (08:03)
[2024-11-22 07:25] VITALS: BP 149/79; PULSE 67; TEMP 36.6; O2SAT 93
[2024-11-22] MEDS: ALPHA IV (07:51)
[2024-11-22] MEDS: PROTEINASE INHIBITOR IV (07:51)
== END 2024-11-24 23:59 | disposition home or self-care (01) ==
LOC: INF 07:07
PROVIDERS: PCP Student in an Organized Health Care Education/Training Program; Visit Provider Internal Medicine
DX: E88.01 Alpha-1-antitrypsin deficiency (principal); J43.9 Emphysema, unspecified
CPT/HCPCS: 96365; J0256

== ENCOUNTER 2024-12-19 07:37 | Outpatient (RCR) | payer MEDICARE, SELFPAY ==
[2024-11-28] MEDS: PROTEINASE INHIBITOR IV (07:47)
[2024-11-28] MEDS: ALPHA IV (07:47)
[2024-11-28 07:52] VITALS: BP 113/63; PULSE 87; TEMP 36.9; O2SAT 91
[2024-12-05 07:25] VITALS: BP 126/77; PULSE 90; TEMP 36.8; O2SAT 92
[2024-12-05] MEDS: PROTEINASE INHIBITOR IV (07:47)
[2024-12-05] MEDS: ALPHA IV (07:47)
[2024-12-12 07:44] VITALS: BP 132/79; PULSE 81; TEMP 36.6; O2SAT 95
[2024-12-12] MEDS: PROTEINASE INHIBITOR IV (07:58)
[2024-12-12] MEDS: ALPHA IV (07:58)
[2024-12-19 07:43] VITALS: PULSE 84; TEMP 36.8
[2024-12-19] MEDS: ALPHA IV (08:00)
[2024-12-19] MEDS: PROTEINASE INHIBITOR IV (08:00)
== END 2024-12-25 23:59 | disposition home or self-care (01) ==
LOC: INF 07:37
PROVIDERS: PCP Student in an Organized Health Care Education/Training Program; Visit Provider Internal Medicine
DX: E88.01 Alpha-1-antitrypsin deficiency (principal); J43.9 Emphysema, unspecified
CPT/HCPCS: 96365; J0256

== ENCOUNTER 2025-01-23 07:41 | Outpatient (RCR) | payer MEDICARE, SELFPAY ==
[2024-12-27 07:53] VITALS: BP 164/77; PULSE 92; TEMP 36.9; O2SAT 92
[2024-12-27] MEDS: PROTEINASE INHIBITOR IV (07:56)
[2024-12-27] MEDS: ALPHA IV (07:56)
[2025-01-02 07:40] VITALS: BP 153/72; PULSE 77; TEMP 36.4; O2SAT 92
[2025-01-02] MEDS: PROTEINASE INHIBITOR IV (08:06)
[2025-01-02] MEDS: ALPHA IV (08:06)
[2025-01-09 07:40] VITALS: BP 127/74; PULSE 90; TEMP 37; O2SAT 90
[2025-01-09] MEDS: ALPHA IV (08:04)
[2025-01-09] MEDS: PROTEINASE INHIBITOR IV (08:04)
--- NOTE | 2025-01-09 08:05 | PC.NURSE ---
IV Prolastin initiated at this time. Pt. denies needs or c/o.
[2025-01-16 07:45] VITALS: BP 134/74; PULSE 70; TEMP 36.4; O2SAT 90
[2025-01-16] MEDS: PROTEINASE INHIBITOR IV (08:05)
[2025-01-16] MEDS: ALPHA IV (08:05)
[2025-01-23 07:42] VITALS: BP 135/72; PULSE 68; TEMP 36.2; O2SAT 93
[2025-01-23] MEDS: PROTEINASE INHIBITOR IV (07:56)
[2025-01-23] MEDS: ALPHA IV (07:56)
== END 2025-01-24 23:59 | disposition home or self-care (01) ==
LOC: INF 07:41
PROVIDERS: PCP Student in an Organized Health Care Education/Training Program; Visit Provider Internal Medicine
DX: E88.01 Alpha-1-antitrypsin deficiency (principal); J43.9 Emphysema, unspecified
CPT/HCPCS: 96365; J0256

== ENCOUNTER 2025-02-20 07:33 | Outpatient (RCR) | payer MEDICARE, SELFPAY ==
[2025-01-30 07:47] VITALS: BP 115/59; PULSE 92; TEMP 36.6; O2SAT 96
[2025-01-30] MEDS: PROTEINASE INHIBITOR IV (07:56)
[2025-01-30] MEDS: ALPHA IV (07:56)
[2025-02-06 07:35] VITALS: BP 131/74; PULSE 81; TEMP 36.7; O2SAT 93
[2025-02-06] MEDS: ALPHA IV (08:01)
[2025-02-06] MEDS: PROTEINASE INHIBITOR IV (08:01)
[2025-02-13 07:39] VITALS: BP 124/73; PULSE 78; TEMP 36.4; O2SAT 94
[2025-02-13] MEDS: ALPHA IV (07:55)
[2025-02-13] MEDS: PROTEINASE INHIBITOR IV (07:55)
[2025-02-20 07:35] VITALS: BP 130/64; PULSE 77; TEMP 36.8; O2SAT 95
[2025-02-20] MEDS: ALPHA IV (07:55)
[2025-02-20] MEDS: PROTEINASE INHIBITOR IV (07:55)
== END 2025-02-24 23:59 | disposition home or self-care (01) ==
LOC: INF 07:33
PROVIDERS: PCP Student in an Organized Health Care Education/Training Program; Visit Provider Internal Medicine
DX: E88.01 Alpha-1-antitrypsin deficiency (principal); J43.9 Emphysema, unspecified
CPT/HCPCS: 96365; J0256

== ENCOUNTER 2025-03-20 07:40 | Outpatient (RCR) | payer MEDICARE, SELFPAY ==
[2025-02-27 07:30] VITALS: BP 143/87; PULSE 62; TEMP 36.2; O2SAT 95
[2025-02-27] MEDS: ALPHA IV (07:50)
[2025-02-27] MEDS: PROTEINASE INHIBITOR IV (07:50)
[2025-03-06 07:30] VITALS: BP 137/80; PULSE 76; TEMP 36.2; O2SAT 92
[2025-03-13 07:42] VITALS: BP 119/75; PULSE 86; TEMP 36.3; O2SAT 97
[2025-03-20 07:44] VITALS: BP 123/72; PULSE 91; TEMP 36.5; O2SAT 94
== END 2025-03-26 23:59 | disposition home or self-care (01) ==
LOC: INF 07:40
PROVIDERS: PCP Student in an Organized Health Care Education/Training Program; Visit Provider Internal Medicine
DX: E88.01 Alpha-1-antitrypsin deficiency (principal); J43.9 Emphysema, unspecified
CPT/HCPCS: 96365; J0256

== ENCOUNTER 2025-04-17 07:33 | Outpatient (RCR) | payer MEDICARE, SELFPAY ==
[2025-03-27 07:30] VITALS: BP 132/78; PULSE 77; TEMP 36.4; O2SAT 90
[2025-04-03 07:31] VITALS: BP 135/82; PULSE 70; TEMP 36.1; O2SAT 98
[2025-04-10 07:35] VITALS: BP 121/72; PULSE 87; TEMP 36.4; O2SAT 95
[2025-04-17 07:36] VITALS: BP 146/79; PULSE 80; TEMP 36.5; O2SAT 90
== END 2025-04-26 23:59 | disposition home or self-care (01) ==
LOC: INF 07:33
PROVIDERS: PCP Student in an Organized Health Care Education/Training Program; Visit Provider Internal Medicine
DX: E88.01 Alpha-1-antitrypsin deficiency (principal)
CPT/HCPCS: 96365; J0256